=== PATIENT | female | born 1955 | race Caucasian/White ===

== ENCOUNTER → 2017-11-11 | Outpatient (CLI) | payer BC ==
--- NOTE | 2017-11-11 15:20 | Diagnostic Imaging Report ---
TECHNIQUE: Magnetic resonance imaging of the RIGHT HAND was performed WITHOUT injected contrast. HISTORY: Right hand pain COMPARISON: None. FINDINGS: Bones: Bone marrow edema within the middle phalanx of the small finger with T1 signal loss. No discrete fracture line. The remainder of the bone marrow signal is normal. Joints: No abnormal alignment. Soft Tissues: Flexor and extensor tendons are intact. IMPRESSION: Bone marrow edema within the middle phalanx small finger. This may reflect subacute healing fracture. Signed by: Dr. Ej Jordan M.D. on 11/11/2017 3:17 PM
== END ==
LOC: MRI 13:19
PROVIDERS: ATTEND Family Medicine
DX: M79.641 Pain in right hand (principal)

== ENCOUNTER 2023-11-01 04:50 | Inpatient (IN) | payer OTHER, MEDICARE ==
[2023-11-01] VITALS (7 sets, daily range): BP systolic 80–93; BP diastolic 47–57; PULSE 62–92; RESP 17–20; TEMP 97.8–98.5; O2SAT 99–100
[~2023-11-01] VITALS: Ht 170.2 cm; Wt 62.1 kg
[2023-11-01] MEDS: MIDODRINE HCL 5 MG TABLET PO STA (05:15)
[2023-11-01] MEDS ORDERED: SODIUM CHLORIDE FLUSH 10 ML SYR IV PRN (05:15)
[2023-11-01] MEDS: SODIUM CHLORIDE 0.9% 1000ML 1,000 ML IV ONE ×2 (05:16→12:11)
[2023-11-01] MEDS ORDERED: ONDANSETRON HCL 4 MG ORAL DISINTEGRATING TAB ONE (05:25)
[2023-11-01] MEDS: ONDANSETRON HCL 4 MG ORAL DISINTEGRATING TAB PO ONE (05:27)
[2023-11-01 05:52] LABS: BASOPHILS # (AUTO) 0.1 (0.0-0.1); BASOPHILS % 0.6 % (0.0-1.0); EOSINOPHILS # (AUTO) 0.1 (0.0-0.4); EOSINOPHILS % 0.6 % (0.0-6.0); HEMATOCRIT 32.3 % (34.2-44.1); HEMOGLOBIN 11.1 g/dL (12.0-16.0); LYMPHOCYTES # (AUTO) 1.1 (1.0-3.2); LYMPHOCYTES % 7.6 % (18.0-39.1); MEAN CORPUSCULAR HGB CONC 34.4 g/dL (31-35); MEAN CORPUSCULAR VOLUME 96.1 fL (81-99); MONOCYTES # (AUTO) 1.8 (0.2-0.8); MONOCYTES % 12.1 % (4.4-11.3); NEUTROPHILS # (AUTO) 11.3 (2.1-6.9); NEUTROPHILS % 78.6 % (38.7-80.0); PLATELET COUNT 246 x10e3/uL (140-360); RED BLOOD COUNT 3.36 x10e6/uL (3.6-5.1); WHITE BLOOD COUNT 14.43 x10e3/uL (4.8-10.8)
[2023-11-01 06:18] LABS: INR 1.04; PROTHROMBIN TIME 13.8 seconds (11.9-14.5)
[2023-11-01 06:19] LABS: PARTIAL THROMBOPLASTIN TIME 42.1 seconds (23.8-35.5)
[2023-11-01 06:28] LABS: ALBUMIN 2.7 g/dL (3.5-5.0); ALBUMIN/GLOBULIN RATIO 0.9 (0.8-2.0); ANION GAP 19.9 mmol/L (8-16); BILIRUBIN,TOTAL 0.4 mg/dL (0.2-1.2); CALCIUM 7.9 mg/dL (8.4-10.2); CREATININE, SERUM 6.63 mg/dL (0.57-1.11); POTASSIUM 3.9 mmol/L (3.5-5.1); TOTAL PROTEIN 5.8 g/dL (6.5-8.1)
[2023-11-01 06:33] LABS: TROPONIN I 0.005 ng/mL (0-0.300)
[2023-11-01] MEDS ORDERED: LOPERAMIDE HCL 2 MG CAP PO PRN (07:15)
[2023-11-01] MEDS: ONDANSETRON HCL INJ 2MG/ML 2ML 2 MG/ML VIAL IV STA (07:36)
[2023-11-01] MEDS ORDERED: CIPROFLOXACIN 400 MG/D5W 200ML 200 ML IV SCH (08:15)
[2023-11-01] MEDS: METRONIDAZOLE 250MG/NS 50ML 50 ML IV ONE (09:04)
[2023-11-01] MEDS: LOPERAMIDE HCL 2 MG CAP PO ONE (09:12)
[2023-11-01] MEDS: CIPROFLOXACIN 400 MG/D5W 200ML 200 ML IV SCH (14:25)
[2023-11-01] MEDS ORDERED: TRAZODONE HCL50 MG PO (14:45)
[2023-11-01] MEDS ORDERED: BUSPIRONE HCL15 MG PO (14:45)
[2023-11-01] MEDS ORDERED: flax seed oil PO (14:45)
[2023-11-01] MEDS ORDERED: MIDODRINE HCL5 MG PO (14:45)
[2023-11-01] MEDS ORDERED: PREDNISONE5 MG PO (14:45)
[2023-11-01] MEDS ORDERED: MULTI-VITAMIN1 EACH PO (14:45)
[2023-11-01] MEDS ORDERED: ATORVASTATIN CA20 MG PO (14:45)
[2023-11-01] MEDS ORDERED: colace PO (14:45)
[2023-11-01] MEDS ORDERED: mylanta PO (14:45)
[2023-11-01] MEDS: ACETAMINOPHEN 325 MG TAB PO PRN (15:36)
[2023-11-01] MEDS ORDERED: BUPROPION HCL100 MG PO (15:55)
[2023-11-01] MEDS ORDERED: SCOPOLAMINE1 EACH TOP (15:55)
[2023-11-01] MEDS ORDERED: KIONEX PO (15:55)
[2023-11-01] MEDS ORDERED: LACTULOSE20 GM/30 M PO (15:55)
[2023-11-01] MEDS ORDERED: METHOCARBAMOL750 MG PO (15:55)
[2023-11-01] MEDS ORDERED: PROAIR RESPICL90 MCG INH (15:55)
[2023-11-01] MEDS ORDERED: AMITRIPTYLINE H10 MG PO (15:55)
[2023-11-01] MEDS ORDERED: ULTRAM 50MG50 MG PO (15:55)
[2023-11-01] MEDS ORDERED: OMEGA-31000 MG PO (15:55)
[2023-11-01] MEDS ORDERED: CALTRATE 600 W1 EACH PO (15:55)
[2023-11-01] MEDS ORDERED: ANORO ELLIPTA1 EACH IH (15:55)
[2023-11-01] MEDS ORDERED: ONDANSETRON ODT8 MG PO (15:55)
[2023-11-01] MEDS ORDERED: ALLOPURINOL100 MG PO (16:02)
[2023-11-01] MEDS ORDERED: LINZESS290 MCG PO (16:02)
[2023-11-01] MEDS: MIDODRINE HCL 5 MG TABLET PO SCH (16:54)
[2023-11-01] MEDS ORDERED: TRAMADOL HCL 50 MG TAB PO PRN (19:45)
[2023-11-01] MEDS: OMEGA 3 POLYUNSAT FATTY ACIDS 1000 MG SOFTGEL PO SCH (21:25)
[2023-11-01] MEDS: ONDANSETRON HCL 4 MG ORAL DISINTEGRATING TAB PO PRN (22:44)
[2023-11-02] VITALS (8 sets, daily range): BP systolic 60–85; BP diastolic 41–58; PULSE 61–75; RESP 17–18; TEMP 98–99.2; O2SAT 94–100
[2023-11-02] MEDS: METRONIDAZOLE 500MG/NS 100ML 100 ML IV SCH (00:04)
[2023-11-02] MEDS: SODIUM CHLORIDE 0.9% 1000ML 250 ML IV ONE (04:55)
[2023-11-02] MEDS ORDERED: ALBUMIN 25% 12.5GM 0.25 GM/ML BTL IV PRN (08:15)
[2023-11-02] MEDS ORDERED: SODIUM CHLORIDE 0.9% 250ML 500 ML IV PRN (08:15)
[2023-11-02] MEDS: BUPROPION HCL 100 MG TAB PO SCH (09:00)
[2023-11-02] MEDS: METHOCARBAMOL 750 MG TAB PO SCH (09:00)
[2023-11-02] MEDS: PREDNISONE 5 MG TAB PO SCH (13:53)
[2023-11-02] MEDS: ALLOPURINOL 100 MG TAB PO SCH (13:53)
[2023-11-02] MEDS: MULTIVITAMINS/MINERALS TAB PO SCH (13:53)
[2023-11-02] MEDS: ATORVASTATIN 20 MG TAB PO SCH (13:53)
[2023-11-02] MEDS: VANCOMYCIN HCL 125 MG CAPSULE PO SCH (21:06)
[2023-11-02 21:21] LABS: WBC,FECAL (FECAL LACTOFERRIN) POSITIVE (NEGATIVE)
[2023-11-02] MEDS: ONDANSETRON HCL 4 MG ORAL DISINTEGRATING TAB PO ONE (23:27)
[2023-11-02] MEDS: SCOPOLAMINE 1 MG PATCH TOP ONE (23:58)
[2023-11-03] VITALS (10 sets, daily range): BP systolic 53–93; BP diastolic 42–57; PULSE 57–73; RESP 17–19; TEMP 98.2–98.7; O2SAT 93–100
[2023-11-04] VITALS (8 sets, daily range): BP systolic 84–105; BP diastolic 51–66; PULSE 61–76; RESP 17–18; TEMP 98–98.6; O2SAT 97–100
[2023-11-04 05:53] LABS: BASOPHILS # (AUTO) 0.1 (0.0-0.1); BASOPHILS % 0.4 % (0.0-1.0); EOSINOPHILS # (AUTO) 0.1 (0.0-0.4); EOSINOPHILS % 0.6 % (0.0-6.0); HEMATOCRIT 40.6 % (34.2-44.1); HEMOGLOBIN 12.3 g/dL (12.0-16.0); LYMPHOCYTES # (AUTO) 1.2 (1.0-3.2); LYMPHOCYTES % 7.7 % (18.0-39.1); MEAN CORPUSCULAR HGB CONC 30.3 g/dL (31-35); MEAN CORPUSCULAR VOLUME 105.7 fL (81-99); MONOCYTES # (AUTO) 1.2 (0.2-0.8); MONOCYTES % 7.5 % (4.4-11.3); PLATELET COUNT 105 x10e3/uL (140-360); RED BLOOD COUNT 3.84 x10e6/uL (3.6-5.1); RED CELL DISTRIBUTION WIDTH 16.8 % (11.7-14.4); WHITE BLOOD COUNT 15.63 x10e3/uL (4.8-10.8)
[2023-11-04 06:23] LABS: ALBUMIN 2.8 g/dL (3.5-5.0); ALBUMIN/GLOBULIN RATIO 0.9 (0.8-2.0); BILIRUBIN,TOTAL 0.3 mg/dL (0.2-1.2); CALCIUM 7.8 mg/dL (8.4-10.2); CREATININE, SERUM 7.02 mg/dL (0.57-1.11); TOTAL PROTEIN 5.8 g/dL (6.5-8.1)
[2023-11-04] MEDS ORDERED: SODIUM CHLORIDE 0.9% 1000ML 2,000 ML IV PRN (09:30)
[2023-11-04] MEDS ORDERED: ALBUMIN 5% 250ML 500 ML IV PRN (09:30)
[2023-11-04] MEDS ORDERED: ACETAMINOPHEN 325 MG TAB ONE (10:20)
[2023-11-04] MEDS: FLUDROCORTISONE ACETATE 0.1 MG TAB PO SCH (12:45)
[2023-11-05] VITALS: BP 95/59; PULSE 67; RESP 18; TEMP 98.8; O2SAT 95
[2023-11-05] MEDS: VANCOMYCIN 250MG/5ML ORAL SOLN PO SCH (00:20)
[2023-11-05] MEDS ORDERED: VANCOMYCIN 250MG/5ML ORAL SOLN ONE ×2 (00:21→05:27)
[2023-11-05 04:00] VITALS: BP 95/60; PULSE 113; RESP 18; TEMP 98.2; O2SAT 98
[2023-11-05 07:16] LABS: BASOPHILS # (AUTO) 0.1 (0.0-0.1); BASOPHILS % 0.4 % (0.0-1.0); EOSINOPHILS # (AUTO) 0.2 (0.0-0.4); EOSINOPHILS % 1.1 % (0.0-6.0); HEMATOCRIT 31.1 % (34.2-44.1); HEMOGLOBIN 9.8 g/dL (12.0-16.0); LYMPHOCYTES # (AUTO) 1.1 (1.0-3.2); LYMPHOCYTES % 7.9 % (18.0-39.1); MEAN CORPUSCULAR HEMOGLOBIN 31.4 pg (28-32); MEAN CORPUSCULAR HGB CONC 31.5 g/dL (31-35); MEAN CORPUSCULAR VOLUME 99.7 fL (81-99); MONOCYTES # (AUTO) 1.4 (0.2-0.8); MONOCYTES % 10.2 % (4.4-11.3); NEUTROPHILS # (AUTO) 10.7 (2.1-6.9); NEUTROPHILS % 79.4 % (38.7-80.0); PLATELET COUNT 300 x10e3/uL (140-360); RED BLOOD COUNT 3.12 x10e6/uL (3.6-5.1); RED CELL DISTRIBUTION WIDTH 16.2 % (11.7-14.4); WHITE BLOOD COUNT 13.48 x10e3/uL (4.8-10.8)
[2023-11-05 08:10] VITALS: BP 98/64; PULSE 70; RESP 17; TEMP 98.2; O2SAT 95
[2023-11-05] MEDS ORDERED: FLUDROCORTISONE ACETATE 0.1 MG TAB ONE (08:34)
[2023-11-05] MEDS: SODIUM CHLORIDE 0.9% 1000ML 2,000 ML ONE (08:44)
[2023-11-05 09:00] VITALS: BP 98/64; PULSE 70; RESP 17; TEMP 98.2; O2SAT 95
[2023-11-05 12:18] VITALS: BP 103/62; PULSE 70; RESP 18; TEMP 98.2; O2SAT 96
== END 2023-11-05 16:30 | disposition home or self-care (01) | DRG 371 ==
LOC: ER 05:00 → ERHOLD 08:14 → MED/SURG3 09:49
PROVIDERS: ADMIT Family Medicine; ATTEND Family Medicine
PROC: 5A1D70Z Performance of Urinary Filtration, Intermittent, Less than 6 Hours Per Day (ICD-10-PCS; 2023-11-02)
PROC: 02HV33Z Insertion of Infusion Device into Superior Vena Cava, Percutaneous Approach (ICD-10-PCS; principal; 2023-11-04)
PROC: 5A1D70Z Performance of Urinary Filtration, Intermittent, Less than 6 Hours Per Day (ICD-10-PCS; 2023-11-04)
DX: A04.72 Enterocolitis due to Clostridium difficile, not specified as recurrent (principal); N18.6 End stage renal disease; I12.0 Hypertensive chronic kidney disease with stage 5 chronic kidney disease or end stage renal disease; T86.12 Kidney transplant failure; I95.9 Hypotension, unspecified; Z99.2 Dependence on renal dialysis; E78.5 Hyperlipidemia, unspecified; F32.A Depression, unspecified; Z90.5 Acquired absence of kidney; Z88.5 Allergy status to narcotic agent; Z88.8 Allergy status to other drugs, medicaments and biological substances; Z79.52 Long term (current) use of systemic steroids; Z79.51 Long term (current) use of inhaled steroids; Z11.52 Encounter for screening for COVID-19; R12 Heartburn; K57.90 Diverticulosis of intestine, part unspecified, without perforation or abscess without bleeding; K76.89 Other specified diseases of liver; R53.81 Other malaise; R29.6 Repeated falls; G90.1 Familial dysautonomia [Riley-Day]; A04.9 Bacterial intestinal infection, unspecified
CPT/HCPCS: 36415; 36556; 71045; 74176; 74470; 76937; 77001; 80053; 82948; 83630; 83690; 84484; 85025; 85610; 85730; 86706; 86707; 87045; 87177; 87324; 87350; 87449; 93005; 94760; 99284; J2405; J7030; J7512; Q0162; U0002